=== PATIENT | male | born 1965 | race Two or more races ===

== ENCOUNTER 2016-08-04 05:19 | Day surgery (SDC) | payer OTHER ==
--- NOTE | 2016-08-03 17:15 | Pre-op HX & Phy Repo 2 SIG ---
DATE OF ADMISSION: 08/03/2016 DATE OF SURGERY: 08/04/2016. PREOPERATIVE DIAGNOSES: 1. Inflammatory debris on the intra-ocular lens, right eye. 2. Status post repaired retinal detachment, right eye. BRIEF NOTE: This is the second [facility] admission for the patient, who is a very nice 51-year-old gentleman initially admitted to [facility] in February of 2015 with a prior retinal detachment and inflammation associated with Perfluoron fluid. He underwent a vitrectomy at that time with removal of retained silicone oil and endolaser. He did well with improvement of his vision. He apparently discontinued steroid medications and in time developed severe inflammation and debris formation on both sides of his anterior chamber lens. This is not laserable and he subsequently is admitted for removal of the material from both sides of the lens and injection of Kenalog. PAST MEDICAL HISTORY: Unremarkable. CURRENT MEDICATIONS: Include topical medications for pressure and inflammation including prednisolone, Alphagan, and Vigamox. ALLERGIES: He has no known allergies. SOCIAL HISTORY: He does not smoke or drink. OCULAR EXAMINATION: Best vision at the time of admission was counting fingers at 2 feet in the right eye and 20/30 in the left with pressures of 26 and 17. The anterior segment on the right showed mild corneal haze. There was a peripheral iridotomy and extensive inflammatory debris on the surface of the lens. An anterior chamber lens was in position. The left anterior segment was quiet. Funduscopic examination yielded a hazy view. There was a mild epiretinal membrane and what appeared to be of repaired peripheral retinal detachment on a scleral buckle. The retina was attached. B-scan was done at the time of the visit and revealed a flat retina with only mild vitreous debris. ASSESSMENT: Severe inflammation of the right eye with lens debris. PLAN: The plan is to perform a pars plana vitrectomy with Kenalog injection and removal of inflammatory debris from the anterior and posterior surfaces. The haptics of the lens will be checked and repositioned if necessary. The risks and benefits of surgery were gone over with the patient including potential for infection, hemorrhage, glaucoma, retinal detachment, and the possibility of the loss of the eye. The risk of anesthesia was discussed. The patient understands and consents to the surgery, which will be performed on tomorrow morning. Carlos Mccabe M.D. DR: KADI JOB#: [id number] CC:
[~2016-08-04] VITALS: Ht 170.2 cm; Wt 81.6 kg
[2016-08-04] VITALS (12 sets, daily range): BP systolic 111–127; BP diastolic 70–85
[~2016-08-04 05:19] MED LIST: NKM
[2016-08-04] MEDS ORDERED: Phenylephrine 2.5% Op Soln ONE (05:58)
[2016-08-04] MEDS ORDERED: Flurbiprofen 0.03% Opth Sol 2.5ml ONE (05:58)
[2016-08-04] MEDS ORDERED: Gatifloxacin Opth Solution 0.5% ONE (05:58)
[2016-08-04] MEDS ORDERED: Cyclopentolate 1% Opth Sol ONE (05:58)
[2016-08-04 06:01] LABS: BASOPHILS % (AUTO) 0.9 % (0.0-2.0); EOSINOPHILS % (AUTO) 4.8 % (0.0-3.0); LYMPHOCYTES % (AUTO) 23.2 % (20.0-45.0); MEAN CORPUSCULAR HEMOGLOBIN 30.6 PG (27.0-31.0); MEAN CORPUSCULAR HGB CONC 34.8 G/DL (32.0-36.0); MEAN CORPUSCULAR VOLUME 88 FL (80-99); MEAN PLATELET VOLUME 6.4 FL (6.5-10.1); MONOCYTES % (AUTO) 8.2 % (1.0-10.0); NEUTROPHILS % (AUTO) 62.9 % (45.0-75.0); PLATELET COUNT 177 K/UL (150-450); RED BLOOD COUNT 5.51 M/UL (4.70-6.10); RED CELL DISTRIBUTION WIDTH 11.4 % (11.6-14.8); WHITE BLOOD COUNT 4.8 K/UL (4.8-10.8)
[2016-08-04] MEDS: Cyclopentolate 1% Opth Sol RIGHT EYE SCH ×3 (06:02→06:13)
[2016-08-04] MEDS: Phenylephrine 2.5% Op Soln RIGHT EYE SCH ×3 (06:02→06:13)
[2016-08-04] MEDS: Flurbiprofen 0.03% Opth Sol 2.5ml RIGHT EYE SCH ×3 (06:02→06:13)
[2016-08-04] MEDS: Gatifloxacin Opth Solution 0.5% RIGHT EYE SCH ×3 (06:02→06:13)
--- NOTE | 2016-08-04 06:14 | Pre-Procedure Note/Attestation ---
Pre-Procedure Note/Attestation Complete Prior to Procedure Planned Procedure: right Procedure Narrative: PPV, removal of inflammatory debris (pupillary membrane) from anterior and posterior surface of IOL), Kenalog injection R eye. Indications for Procedure Pre-Operative Diagnosis: Inflammatory debris on IOL, pupillary membrane OD Attestation I attest that I discussed the nature of the procedure; its benefits; risks and complications; and alternatives (and the risks and benefits of such alternatives ), prior to the procedure, with the patient (or the patient's legal environmental marketing representative). I attest that, if there was a reasonable possibility of needing a blood transfusion, the patient (or the patient's legal environmental marketing representative) was given the [place] Department [employer] Services standardized written summary, pursuant to the [place] Blood Safety Act ([place] Health and Safety Code # 1645, as amended). I attest that I re-evaluated the patient just prior to the surgery and that there has been no change in the patient's H&P, except as documented below: FATOUMATA ULLOA Aug 04, 2016 06:14
[2016-08-04 06:20] LABS: ANION GAP 14 (5-15); CALCIUM 9.2 mg/dL (8.6-10.2); CARBON DIOXIDE 25 mEQ/L (20-30); CHLORIDE 100 mEQ/L (98-107); CREATININE 0.9 mg/dL (0.7-1.2); GLOMERULAR FILTRATION RATE > 60 mL/min (>60); HEMOLYSIS 19; POTASSIUM 3.8 mEQ/L (3.4-4.9); SODIUM 139 mEQ/L (135-145)
[2016-08-04] MEDS ORDERED: Pred Forte 1% Opth Susp 1ml RIGHT EYE ONE (06:30)
[2016-08-04] MEDS ORDERED: Maxitrol Opth Oint 3.5gm ONE (06:37)
[2016-08-04] MEDS ORDERED: BSS 500ml btl ONE (06:37)
[2016-08-04] MEDS ORDERED: Dexamethasone 4mg/ml vial ONE (06:38)
[2016-08-04] MEDS ORDERED: Tetracaine 0.5% Opth Soln ONE (06:38)
[2016-08-04] MEDS ORDERED: Povidone-Iodine 5% opth solution ONE (06:40)
[2016-08-04] MEDS ORDERED: EPINEPHrine 1mg/1ml Amp ONE (06:40)
[2016-08-04] MEDS ORDERED: Lidocaine 2% MPF 5ml Vial INJ ONE (06:40)
[2016-08-04] MEDS ORDERED: Bupivacaine 0.75% 30ml vial INJ ONE (06:41)
[2016-08-04] MEDS ORDERED: BSS 15ml BTL ONE (06:41)
[2016-08-04] MEDS ORDERED: Kenalog-40 1ml Vial ONE (06:42)
[2016-08-04] MEDS ORDERED: Sodium Hyaluronate 10 mg/ml 0.85ml ONE (06:42)
[2016-08-04] MEDS ORDERED: Kenalog-10 5ml Inj ONE (06:42)
[2016-08-04] MEDS ORDERED: Indocyanine Green 25mg Inj INJ ONE (07:15)
[2016-08-04] MEDS ORDERED: NS Irrig 1000ml ONE (07:30)
[2016-08-04] MEDS ORDERED: Midazolam 2mg/2ml Inj ONE (07:30)
[2016-08-04] MEDS ORDERED: Labetalol 5mg/ml 20ml vial IV ONE (07:30)
[2016-08-04] MEDS ORDERED: fentaNYL 100 mcg/2 mL IV ONE (07:30)
[2016-08-04] MEDS ORDERED: Propofol 10mg/ml 20ml IV ONE (07:30)
[2016-08-04] MEDS ORDERED: LR 1000ml ONE (07:30)
[2016-08-04] MEDS ORDERED: Sterile Water Irrig 1000ml IRRIG ONE (07:30)
--- NOTE | 2016-08-04 07:30 | Anethesia Preoperative Eval ---
Anesthesia Pre-op PMH/ROS General Date of Evaluation: Aug 04, 2016 Time of Evaluation: 07:27 Anesthesiologist: Ishan ASA Score: ASA 2 Mallampati Score Class I : Soft palate, uvula, fauces, pillars visible Class II: Soft palate, uvula, fauces visible Class III: Soft palate, base of uvula visible Class IV: Only hard plate visible Mallampati Classification: Class II Surgeon: Estelle Diagnosis: R eye retinopathy Surgical Procedure: R eye PPV Anesthesia History: none Family History: no anesthesia problems Allergies: Coded Allergies: No Known Allergies (Unverified , 07/29/15) Medications: see eMAR Past Medical History Cardiovascular: Denies: CAD, HTN, [place], arrhythmia, other, valve dz Pulmonary: Denies: COPD, [place], asthma, other Gastrointestinal/Genitourinary: Reports: GERD, Denies: CRI, ESRD, other Neurologic/Psychiatric: Denies: CVA, TIA, dementia, depression/anxiety, other Endocrine: Denies: DM, hypothyroidism, other, steroids HEENT: Reports: cataract (R), other - R eye retinopathy, Denies: SAV[place]ONGA (L), SAV[place]GA (R), cataract (L), glaucoma Hematology/Immune: Denies: DVT, anemia, bleeding disorder, other Musculoskeletal/Integumentary: Denies: DDD, DJD, OA, RA, edema, other PMH Narrative: as above PSxH Narrative: R eye Sx Anesthesia Pre-op Phys. Exam Physician Exam Last Vital Signs Date Time Temp Pulse Resp B/P Pulse Ox O2 Delivery O2 Flow Rate FiO2 08/04/16 06:06 97.6 56 20 127/70 99 Room Air Constitutional: NAD Neurologic: CN 2-12 intact Cardiovascular: RRR, no M/R/G Respiratory: CTA Gastrointestinal: S/NT/ND Airway Exam Mallampati Score: Class II MO: full Neck: flexible ROM: full Teeth: intact Dentures: no lower, no upper Anesthesia Pre-op A/P Labs Hematology Test 08/04/16 05:50 White Blood Count 4.8 K/UL (4.8-10.8) Red Blood Count 5.51 M/UL (4.70-6.10) Hemoglobin 16.9 G/DL (14.2-18.0) Hematocrit 48.6 % (42.0-52.0) Mean Corpuscular Volume 88 FL (80-99) Mean Corpuscular Hemoglobin 30.6 PG (27.0-31.0) Mean Corpuscular Hemoglobin Concent 34.8 G/DL (32.0-36.0) Red Cell Distribution Width 11.4 % (11.6-14.8) L Platelet Count 177 K/UL (150-450) Mean Platelet Volume 6.4 FL (6.5-10.1) L Neutrophils (%) (Auto) 62.9 % (45.0-75.0) Lymphocytes (%) (Auto) 23.2 % (20.0-45.0) Monocytes (%) (Auto) 8.2 % (1.0-10.0) Eosinophils (%) (Auto) 4.8 % (0.0-3.0) H Basophils (%) (Auto) 0.9 % (0.0-2.0) Chemistry Test 08/04/16 05:50 Sodium Level 139 mEQ/L (135-145) Potassium Level 3.8 mEQ/L (3.4-4.9) Chloride Level 100 mEQ/L (98-107) Carbon Dioxide Level 25 mEQ/L (20-30) Anion Gap 14 (5-15) Blood Urea Nitrogen 18 mg/dL (7-23) Creatinine 0.9 mg/dL (0.7-1.2) Estimat Glomerular Filtration Rate > 60 mL/min (>60) Glucose Level 98 mg/dL (74-106) Calcium Level 9.2 mg/dL (8.6-10.2) Studies Pre-op Studies: EKG - NSR Risk Assessment & Plan Assessment: ASA 2 Plan: GA with LMA patients request Status Change Before Surgery: No Pre-Antibiotics Drug: none YEIMI FIGUEROA M.D. Aug 04, 2016 07:30
[2016-08-04] MEDS ORDERED: Meperidine 25mg/0.5ml Inj IV PRN (08:00)
[2016-08-04] MEDS ORDERED: LR 1000ml 1,000 ML IVLG SCH (08:00)
[2016-08-04] MEDS ORDERED: Ketorolac 30mg Inj IV PRN (08:00)
[2016-08-04] MEDS ORDERED: DiphenhydrAMINE 50mg/ml Inj IVP PRN (08:00)
--- NOTE | 2016-08-04 08:15 | Pre-op HX & Phy Repo 2 SIG ---
DATE OF ADMISSION: 08/04/2016 PRESURGICAL INTERNAL MEDICINE HISTORY AND PHYSICAL SURGEON: Carlos Mccabe M.D. REASON FOR EVALUATION: I was asked to see this 51-year-old male, whom going for elective surgery on the right eye. intraocular lens opacity. The patient was examined. Chart was reviewed. The patient's second visit to [facility]. She was for right eye surgery in 10/10/2015. PAST MEDICAL HISTORY: Denies history of hypertension or diabetes. No history of heart attack, chest pain or palpitation. No lung problem, asthma, or bronchitis. No history of stroke or seizures. No history of thyroid problem. No anemia. No renal failure. Denies history of arthritis or prostate problem. PAST SURGICAL HISTORY: Right eye surgery in September of 2015. MEDICATIONS: Present medications eye drops. ALLERGIES: Not known. HABITS: The patient smoked till last year moderately. Alcohol occasionally. FAMILY HISTORY: Father from cancer of the lung. Smoker. Mother is alive. PHYSICAL EXAMINATION: GENERAL: The patient is alert. VITAL SIGNS: Blood pressure 127/70, temperature 97.6 degrees, pulse 56, respirations 20, and O2 saturation 99% on room air. SKIN: Dry and warm. No cyanosis or diaphoresis. No rashes. LYMPHATICS: Lymph nodes not enlarged. HEENT: Head is normocephalic and atraumatic. Ears, clear. Eyes, full description per Dr. Carlos Mccabe. Mouth, clear and moist. No dentures. No ulcers or discharge. NECK: Supple. No jugular venous distention. Carotids artery +2. Trachea midline. CHEST: No deformity or asymmetry. LUNGS: Clear. No rales or rhonchi. HEART: Sinus rhythm. No ectopy. No murmur. No S3 or S4. ABDOMEN: Soft. No rebound. Liver and spleen not enlarged. EXTREMITIES: No edema. No varicose veins. No calf tenderness. CENTRAL NERVOUS SYSTEM: No asymmetry. No tremor. No nystagmus. LABORATORY AND DIAGNOSTIC DATA: EKG, normal sinus rhythm, 60 per minute. No sinus arrhythmia. The patient did not eat or drink from last night. Laboratory checks in normal limits. No mass. IMPRESSION: 1. Intra-ocular lens opacity. 2. Sinus arrhythmias. 3. Bradycardia PLAN: Pars plana vitrectomy, 23 G removal of opacity lens on the right eye per Dr. Carlos Mccabe. CONCLUSION: The patient's vital signs stable. Laboratory work and the vital signs are normal. The patient did not eat or drink from last night. The patient's condition optimized for surgery. Thank you very much, Dr. Mccabe, for privilege to participate in presurgical care of this interesting patient. Damien Niño M.D. DR: Carol JOB#: [id number] CC:
--- NOTE | 2016-08-04 08:47 | Brief Operative Note ---
Immediate Post Operative Note Operative Note Chief Complaint: Progressively cloudy vision OD Pre-op Diagnosis: Inflammatory debris on IOL, pupillary membrane OD Procedure: PPV, removal of anterior and posterior inflammatory lens membranes, pucker peel , evacuation of residual heavy fluid, enlargement of peripheral iridotomy, paracentesis, Kenalog injection R eye. Post-op Diagnosis: same as pre-op plus - Macular pucker with loculated heavy fluid bubbles R eye Surgeon: malick Anesthesiologist: Ishan Anesthesia: general Specimen: none Complications: none Condition: stable Estimated Blood Loss: none Drains: none Implant(s) used?: No FATOUMATA ULLOA Aug 04, 2016 08:47
--- NOTE | 2016-08-04 09:15 | Immediate Post-Op Evaluation ---
Immediate Post-Op Evalulation Immediate Post-Op Evalulation Procedure: R eye PPV membrane peel Date of Evaluation: Aug 04, 2016 Time of Evaluation: 09:08 IV Fluids: 700 Blood Products: none Estimated Blood Loss: min Urinary Output: none Blood Pressure Systolic: 116 Blood Pressure Diastolic: 81 Pulse Rate: 70 Respiratory Rate: 22 O2 Sat by Pulse Oximetry: 99 Temperature (Fahrenheit): 97.5 Pain Score (1-10): 1 Nausea: No Complications Upper airway irritation on emergence at removal of LMA persistent coughing tachycardic BP up, nose bleeding, extensive suctioning of mouth and nose local packing with phenylephrine solution labetalol and propofol i/v. Bleeding stopped , vitals stable , patient awake breathing spontaneously, moved to PACU. Patient Status: patent, none Hydration Status: adequate YEIMI FIGUEROA M.D. Aug 04, 2016 09:15
--- NOTE | 2016-08-04 11:19 | 48 Hour Post Anesthesia Eval ---
Post Anesthesia Evaluation Procedure: R eye PPV membrane peel Date of Evaluation: Aug 04, 2016 Time of Evaluation: 11:18 Blood Pressure Systolic: 124 0: 82 Pulse Rate: 64 Respiratory Rate: 20 Temperature (Fahrenheit): 97.6 O2 Sat by Pulse Oximetry: 98 Airway: patent Nausea: No Vomiting: No Pain Intensity: 2 Hydration Status: adequate Cardiopulmonary Status: stable Mental Status/LOC: patient returned to baseline Follow-up Care/Observations: n/a Post-Anesthesia Complications: none Follow-up care needed: ready to discharge YEIMI FIGUEROA M.D. Aug 04, 2016 11:19
--- NOTE | 2016-08-04 14:45 | Operative Note - Dictated ---
DATE OF OPERATION: 08/04/2016 PREOPERATIVE DIAGNOSIS: Severe inflammatory membrane formation on intra-ocular lens. POSTOPERATIVE DIAGNOSIS: Severe inflammatory membrane formation on intra-ocular lens with a loculated heavy fluid bubbles behind macular pucker. PROCEDURES PERFORMED: 1. Pars plana vitrectomy. 2. Removal of anterior and posterior inflammatory pupillary membranes. 3. Membrane peel. 4. Evacuation of residual heavy fluid bubbles. 5. Anterior chamber paracentesis. 6. Enlargement of peripheral iridotomy. 7. Kenalog injection, right eye. SURGEON: Carlos Mccabe M.D. INSURANCE BILLING SPECIALIST: None. ANESTHESIA: LMA general. ANESTHESIOLOGIST: Tal Olmstead M.D. JUSTIFICATION FOR SURGERY: This 51-year-old gentleman, who had a complicated retinal detachment repair by another surgeon in 2014. This procedure was complicated by migration of heavy fluid into the anterior chamber, which was subsequently removed during a vitrectomy in early 2015. He has lost follow up for year and upon his return was noted to have severe inflammation and formation of very cloudy inflammatory membranes on both surfaces of the lens implant. BRIEF NOTE: The patient was brought to the operating room, placed on operating room table in supine position. After a time-out was performed and agreed upon by the staff general LMA anesthesia was induced by Dr. Olmstead. Retrobulbar and Van Lint blocks were then given standard way to limit the need for postoperative anesthetic. The patient was then prepped and draped in normal manner. A lid speculum inserted into the right eye. Using a 23-gauge trocar system cannulas were placed all except infratemporal quadrant. Infusion secured verbal inferonasally. Using a [place] [employer], 25-gauge the posterior surface of the lens was gently brushed, clean, very inflammatory debris. A paracentesis was made at the 10 o'clock position and a similar removal was performed on the anterior surface of the lens. Healon was injected into the eye destabilized the anterior chamber and the vitreous cutter was used with gentle suction to remove the adherent debris. Touch up with the [place] [employer] was then used to remove the material from the haptics as well as the inferior angle. This one without difficulty. The peripheral iridotomy at the 9 o'clock position was then enlarged with the vitreous cutter. Using the wide-angle lens the posterior pole was examined. The retina was noted to be all attached, but there were several bubbles of heavy fluid in the posterior pole with a significant amount loculated beneath a dense epiretinal membrane. The free bubbles were then suctioned and cleared from the eye. Using a posterior viewing lens and intra-ocular forceps the macular pucker was gently engaged and peeled allowing access the bubbles that were posterior to the pucker. These were removed with gentle suction. A mild dusting of Kenalog was used to aid in visualization of the pucker. With the majority of the material now removed. The vitreous cavity was copiously flushed with balanced salt solution until no visible bubbles of heavy fluid were seen. At this juncture, the instruments and the superior cannulas were removed from the eye. Through the infusion line and additional Kenalog 3 mm injection was made. This cannula was removed and all wounds noted be self-sealing. Subconjunctival Decadron and gentamicin were then injected inferiorly and Maxitrol ointment as well as prednisolone and gatifloxacin drops were instilled. The eye was patched and shielded and the patient taken to recovery in excellent condition. There are no complications. Carlos Mccabe M.D. DR: Stephanie JOB#: [id number] CC: Carlos Mccabe M.D.; Fax#: [phone]
[2016-08-05] MEDS ORDERED: IBUPROFEN600 MG ORAL (14:13)
== END 2016-08-04 10:50 | disposition home or self-care (01) ==
LOC: SUR 05:19
DX: H43.391 Other vitreous opacities, right eye (principal); H21.41 Pupillary membranes, right eye; H35.371 Puckering of macula, right eye; J95.830 Postprocedural hemorrhage of a respiratory system organ or structure following a respiratory system procedure; R04.0 Epistaxis; I97.191 Other postprocedural cardiac functional disturbances following other surgery; R00.0 Tachycardia, unspecified; Y83.8 Other surgical procedures as the cause of abnormal reaction of the patient, or of later complication, without mention of misadventure at the time of the procedure; Y70.3 Surgical instruments, materials and anesthesiology devices (including sutures) associated with adverse incidents; Y92.238 Other place in hospital as the place of occurrence of the external cause; R00.1 Bradycardia, unspecified; K21.9 Gastro-esophageal reflux disease without esophagitis
CPT/HCPCS: 36415; 67041; 80048; 85025; 93005; J0171; J1100; J2250; J2704; J3010; J3301; J3470; J3490; J7120; 94003; 94150

== ENCOUNTER 2016-08-05 13:56 | Day surgery (SDC) | payer OTHER ==
[~2016-08-05] VITALS: Ht 167.6 cm; Wt 81.6 kg
[2016-08-05] VITALS (7 sets, daily range): BP systolic 120–125; BP diastolic 81–88
[2016-08-05] MEDS ORDERED: IBUPROFEN600 MG ORAL (14:13)
[2016-08-05] MEDS ORDERED: Pred Forte 1% Opth Susp 1ml RIGHT EYE ONE (14:30)
[2016-08-05] MEDS: Cyclopentolate 1% Opth Sol RIGHT EYE SCH ×5 (14:45→16:25)
[2016-08-05] MEDS: Phenylephrine 2.5% Op Soln RIGHT EYE SCH ×6 (14:45→16:25)
[2016-08-05] MEDS: Gatifloxacin Opth Solution 0.5% RIGHT EYE SCH ×6 (14:45→16:25)
[2016-08-05] MEDS: Flurbiprofen 0.03% Opth Sol 2.5ml RIGHT EYE SCH ×6 (14:45→16:25)
[2016-08-05 14:46] LABS: BASOPHILS % (AUTO) 0.7 % (0.0-2.0); EOSINOPHILS % (AUTO) 1.9 % (0.0-3.0); LYMPHOCYTES % (AUTO) 15.2 % (20.0-45.0); MEAN CORPUSCULAR HEMOGLOBIN 31.5 PG (27.0-31.0); MEAN CORPUSCULAR HGB CONC 35.1 G/DL (32.0-36.0); MEAN CORPUSCULAR VOLUME 90 FL (80-99); MEAN PLATELET VOLUME 6.3 FL (6.5-10.1); MONOCYTES % (AUTO) 4.8 % (1.0-10.0); NEUTROPHILS % (AUTO) 77.4 % (45.0-75.0); PLATELET COUNT 179 K/UL (150-450); RED BLOOD COUNT 5.13 M/UL (4.70-6.10); RED CELL DISTRIBUTION WIDTH 11.5 % (11.6-14.8); WHITE BLOOD COUNT 7.7 K/UL (4.8-10.8)
[2016-08-05 15:11] LABS: ALANINE AMINOTRANSFERASE 24 U/L (3-41); ALBUMIN/GLOBULIN RATIO 1.7 (1.0-2.7); ANION GAP 16 (5-15); ASPARTATE AMINO TRANSFERASE 24 U/L (5-40); CALCIUM 9.3 mg/dL (8.6-10.2); CARBON DIOXIDE 28 mEQ/L (20-30); CHLORIDE 96 mEQ/L (98-107); CREATININE 1.1 mg/dL (0.7-1.2); GLOMERULAR FILTRATION RATE > 60 mL/min (>60); HEMOLYSIS 73; POTASSIUM 3.9 mEQ/L (3.4-4.9); SODIUM 140 mEQ/L (135-145); TOTAL PROTEIN 7.1 g/dL (6.6-8.7)
[2016-08-05] MEDS ORDERED: BSS 500ml btl ONE (16:22)
[2016-08-05] MEDS ORDERED: Maxitrol Opth Oint 3.5gm ONE (16:23)
[2016-08-05] MEDS ORDERED: Pred Forte 1% Opth Susp 1ml ONE (16:23)
[2016-08-05] MEDS ORDERED: Kenalog-40 1ml Vial ONE (16:23)
[2016-08-05] MEDS ORDERED: Kenalog-10 5ml Inj ONE (16:24)
[2016-08-05] MEDS ORDERED: Propofol 10mg/ml 20ml IV ONE (16:24)
[2016-08-05] MEDS ORDERED: Dexamethasone 4mg/ml vial ONE ×2 (16:24→17:30)
[2016-08-05] MEDS ORDERED: Tetracaine 0.5% Opth Soln ONE (16:24)
[2016-08-05] MEDS ORDERED: Triamcinolone 40mg/ml PF Vial ONE (16:25)
[2016-08-05] MEDS ORDERED: Povidone-Iodine 5% opth solution ONE (16:25)
[2016-08-05] MEDS ORDERED: Bupivacaine 0.75% 30ml vial INJ ONE (16:25)
[2016-08-05] MEDS ORDERED: EPINEPHrine 1mg/1ml Amp ONE (16:25)
[2016-08-05] MEDS ORDERED: Lidocaine 2% MPF 5ml Vial INJ ONE (16:25)
[2016-08-05] MEDS ORDERED: Sodium Hyaluronate 10 mg/ml 0.85ml ONE (16:25)
[2016-08-05] MEDS ORDERED: BSS 15ml BTL ONE (16:25)
--- NOTE | 2016-08-05 17:13 | Anethesia Preoperative Eval ---
Anesthesia Pre-op PMH/ROS General Date of Evaluation: Aug 05, 2016 Time of Evaluation: 17:10 Anesthesiologist: Kalyan ASA Score: ASA 2 Mallampati Score Class I : Soft palate, uvula, fauces, pillars visible Class II: Soft palate, uvula, fauces visible Class III: Soft palate, base of uvula visible Class IV: Only hard plate visible Mallampati Classification: Class II Surgeon: Estelle Diagnosis: R eye intraocular bleeding Surgical Procedure: R eye PPV Anesthesia History: emergence delirium Family History: no anesthesia problems Allergies: Coded Allergies: No Known Allergies (Unverified , 07/29/15) Medications: see eMAR Past Medical History Cardiovascular: Reports: HTN - mild, Denies: CAD, [place], arrhythmia, other, valve dz Gastrointestinal/Genitourinary: Reports: GERD, Denies: CRI, ESRD, other Neurologic/Psychiatric: Denies: CVA, TIA, dementia, depression/anxiety, other Endocrine: Denies: DM, hypothyroidism, other, steroids HEENT: Reports: cataract (R), other - R eye retinal detouchment Hematology/Immune: Denies: DVT, anemia, bleeding disorder, other Musculoskeletal/Integumentary: Denies: DDD, DJD, OA, RA, edema, other PMH Narrative: as above PSxH Narrative: R eye Sx Anesthesia Pre-op Phys. Exam Physician Exam Last Vital Signs Date Time Temp Pulse Resp B/P Pulse Ox O2 Delivery O2 Flow Rate FiO2 08/05/16 16:09 62 16 122/81 97 Room Air 08/05/16 14:20 98.2 Constitutional: NAD Neurologic: CN 2-12 intact Cardiovascular: RRR Respiratory: CTA Gastrointestinal: S/NT/ND Airway Exam Mallampati Score: Class II MO: full Neck: flexible ROM: full Teeth: missing Dentures: no lower, no upper Anesthesia Pre-op A/P Labs Hematology Test 08/05/16 14:30 White Blood Count 7.7 K/UL (4.8-10.8) # Red Blood Count 5.13 M/UL (4.70-6.10) Hemoglobin 16.2 G/DL (14.2-18.0) Hematocrit 46.1 % (42.0-52.0) Mean Corpuscular Volume 90 FL (80-99) Mean Corpuscular Hemoglobin 31.5 PG (27.0-31.0) H Mean Corpuscular Hemoglobin Concent 35.1 G/DL (32.0-36.0) Red Cell Distribution Width 11.5 % (11.6-14.8) L Platelet Count 179 K/UL (150-450) Mean Platelet Volume 6.3 FL (6.5-10.1) L Neutrophils (%) (Auto) 77.4 % (45.0-75.0) H Lymphocytes (%) (Auto) 15.2 % (20.0-45.0) L Monocytes (%) (Auto) 4.8 % (1.0-10.0) Eosinophils (%) (Auto) 1.9 % (0.0-3.0) Basophils (%) (Auto) 0.7 % (0.0-2.0) Chemistry Test 08/05/16 14:30 Sodium Level 140 mEQ/L (135-145) Potassium Level 3.9 mEQ/L (3.4-4.9) Chloride Level 96 mEQ/L (98-107) L Carbon Dioxide Level 28 mEQ/L (20-30) Anion Gap 16 (5-15) H Blood Urea Nitrogen 15 mg/dL (7-23) Creatinine 1.1 mg/dL (0.7-1.2) Estimat Glomerular Filtration Rate > 60 mL/min (>60) Glucose Level 104 mg/dL (74-106) Calcium Level 9.3 mg/dL (8.6-10.2) Total Bilirubin 0.8 mg/dL (0.0-1.2) Aspartate Amino Transf (AST/SGOT) 24 U/L (5-40) Alanine Aminotransferase (ALT/SGPT) 24 U/L (3-41) Alkaline Phosphatase 71 U/L (40-129) Total Protein 7.1 g/dL (6.6-8.7) Albumin 4.5 g/dL (3.5-5.2) Globulin 2.6 g/dL Albumin/Globulin Ratio 1.7 (1.0-2.7) Studies Pre-op Studies: EKG - NSR Risk Assessment & Plan Assessment: ASA 2 Plan: GA with ETT Status Change Before Surgery: No Pre-Antibiotics Drug: none YEIMI FIGUEROA M.D. Aug 05, 2016 17:13
--- NOTE | 2016-08-05 17:15 | Pre-op HX & Phy Repo 2 SIG ---
DATE OF ADMISSION: 08/05/2016 "NOTE: INCOMPLETE DICTATION" SURGICAL EVALUATION REASON FOR EVALUATION: I was asked by Dr. Carlos Mccabe to see this 51-year-old male, who is going for right eye surgery today. The patient has had the vitrectomy yesterday and developed some bleeding from the right eye. He also complained of sore throat post general anesthesia with intubation yesterday. Please see the full presurgical history and physical dated yesterday and dictated. PAST MEDICAL HISTORY/REVIEW OF SYSTEMS: Unremarkable. No history of hypertension, chest pain, palpitation, or heart attack. No history of stroke or diabetes. Denies history of hypertension. No history of bronchial asthma or respiratory problem. No history of abdominal pain or liver disease. No ulcer. Denies history of renal failure or prostate problem. No history of anemia or thyroid problem. PAST SURGICAL HISTORY: Vitrectomy of the right eye yesterday and in September last year. CURRENT MEDICATIONS: None except for eyedrops. ALLERGIES: Not known. HABITS: The patient smoked for few years and stopped last year. FAMILY HISTORY: Father from lung cancer. Mother alive. PHYSICAL EXAMINATION: VITAL SIGNS: Stable. GENERAL: The patient is alert. SKIN: Clear and warm. HEENT: Complains a throat pain. On examination, throat has slight erythema and edema. Head, normocephalic. Eyes, per Dr. Carlos Mccabe. Nose, clear. No discharge. Ear, no discharge. Trachea midline. NECK: No jugular vein distention. Carotids are 2+. LYMPHATICS: Lymph nodes not enlarged. CHEST: No asymmetry. Damien Niño M.D. DR: DAVE JOB#: [id number] CC:
[2016-08-05] MEDS ORDERED: Midazolam 2mg/2ml Inj ONE (17:30)
[2016-08-05] MEDS ORDERED: Sterile Water Irrig 1000ml IRRIG ONE (17:30)
[2016-08-05] MEDS ORDERED: NS Irrig 1000ml ONE (17:30)
[2016-08-05] MEDS ORDERED: LR 1000ml ONE (17:30)
[2016-08-05] MEDS ORDERED: fentaNYL 100 mcg/2 mL IV ONE (17:30)
--- NOTE | 2016-08-05 17:50 | Emergency Room Report ---
History of Present Illness General Chief Complaint: General Complaint Source: Patient Present Illness HPI 51-year-old male presents to ED for evaluation. Patient referred here by Dr Mccabe (ophthalmology). Patient had retinal surgery of the right eye yesterday. After patient woke up from anesthesia patient noticed a lot of blood in the eye and states he cannot see well. She is here today to have revision of the surgery. States pain is dull, 3/10, nonradiating. Unable to see since the surgery. No other aggravating relieving factors. Denies any other associated symptom Allergies: Coded Allergies: No Known Allergies (Unverified , 07/29/15) Patient History Past Medical History: none Past Surgical History: none Pertinent Family History: none Social History: Denies: alcohol use, drug use, smoking Immunizations: UTD Reviewed Nursing Documentation: PMH: Agreed, PSxH: Agreed Nursing Documentation-PMH Past Medical History: No Stated History Hx Cardiac Problems: No Hx Cancer: No Hx Gastrointestinal Problems: No Hx Neurological Problems: No Review of Systems All Other Systems: negative except mentioned in HPI Physical Exam Vital Signs Date Time Temp Pulse Resp B/P Pulse Ox O2 Delivery O2 Flow Rate FiO2 08/05/16 14:08 98.2 67 16 121/81 97 Room Air Sp02 EP Interpretation: reviewed, normal General Appearance: no apparent distress, alert, GCS 15, non-toxic Head: normocephalic Eyes: right eye other - injected conjunctiva R eye ENT: hearing grossly normal, normal pharynx, no angioedema, normal voice Neck: full range of motion, supple/symm/no masses Respiratory: chest non-tender, lungs clear, normal breath sounds, speaking full sentences Cardiovascular #1: regular rate, rhythm, no edema Gastrointestinal: normal inspection Rectal: deferred Genitourinary: no CVA tenderness Musculoskeletal: normal inspection Neurologic: alert, oriented x3, responsive, motor strength/tone normal, sensory intact, speech normal Psychiatric: normal inspection Skin: normal inspection Lymphatic: normal inspection Medical Decision Making Diagnostic Impression: Primary Impression: Choroid hemorrhage Qualified Codes: H31.301 - Unspecified choroidal hemorrhage, right eye ER Course 51-year-old male presents to ED with pain in injection of the right eye. Status post rectal surgery yesterday Differential- vitreal hemorrhage, conjunctivitis, corneal abrasion Patient placed on stretcher. After initial history and physical I ordered labs , IV fluids Labs unremarkable Spoke to Dr. Mccabe; asked that I order multiple eyedrops to prepare the patient for surgery today Drops were given to the patient without complication. Patient will be taken to the OR Diagnoses-choiroid hemorrhage patien taken to OR Labs Test 08/05/16 14:30 White Blood Count 7.7 K/UL (4.8-10.8) Red Blood Count 5.13 M/UL (4.70-6.10) Hemoglobin 16.2 G/DL (14.2-18.0) Hematocrit 46.1 % (42.0-52.0) Mean Corpuscular Volume 90 FL (80-99) Mean Corpuscular Hemoglobin 31.5 PG (27.0-31.0) Mean Corpuscular Hemoglobin Concent 35.1 G/DL (32.0-36.0) Red Cell Distribution Width 11.5 % (11.6-14.8) Platelet Count 179 K/UL (150-450) Mean Platelet Volume 6.3 FL (6.5-10.1) Neutrophils (%) (Auto) 77.4 % (45.0-75.0) Lymphocytes (%) (Auto) 15.2 % (20.0-45.0) Monocytes (%) (Auto) 4.8 % (1.0-10.0) Eosinophils (%) (Auto) 1.9 % (0.0-3.0) Basophils (%) (Auto) 0.7 % (0.0-2.0) Sodium Level 140 mEQ/L (135-145) Potassium Level 3.9 mEQ/L (3.4-4.9) Chloride Level 96 mEQ/L (98-107) Carbon Dioxide Level 28 mEQ/L (20-30) Anion Gap 16 (5-15) Blood Urea Nitrogen 15 mg/dL (7-23) Creatinine 1.1 mg/dL (0.7-1.2) Estimat Glomerular Filtration Rate > 60 mL/min (>60) Glucose Level 104 mg/dL (74-106) Calcium Level 9.3 mg/dL (8.6-10.2) Total Bilirubin 0.8 mg/dL (0.0-1.2) Aspartate Amino Transf (AST/SGOT) 24 U/L (5-40) Alanine Aminotransferase (ALT/SGPT) 24 U/L (3-41) Alkaline Phosphatase 71 U/L (40-129) Total Protein 7.1 g/dL (6.6-8.7) Albumin 4.5 g/dL (3.5-5.2) Globulin 2.6 g/dL Albumin/Globulin Ratio 1.7 (1.0-2.7) Last Vital Signs Date Time Temp Pulse Resp B/P Pulse Ox O2 Delivery O2 Flow Rate FiO2 08/05/16 16:09 62 16 122/81 97 Room Air 08/05/16 14:20 98.2 Status: improved Disposition: ADMITTED INPATIENT Condition: Serious Referrals: NOT CHOSEN ELIJAH/,REFERRING (PCP) SHERRY BARRERA M.D. Aug 05, 2016 17:50
[2016-08-05] MEDS ORDERED: LR 1000ml 1,000 ML IVLG SCH (18:02)
[2016-08-05] MEDS ORDERED: fentaNYL 100 mcg/2 mL IV PRN (18:15)
--- NOTE | 2016-08-05 18:58 | Pre-Procedure Note/Attestation ---
Pre-Procedure Note/Attestation Complete Prior to Procedure Planned Procedure: right Procedure Narrative: Drainage of choroidal hemorrhage R eye Indications for Procedure Pre-Operative Diagnosis: Large suprachoroidal heme R eye Attestation I attest that I discussed the nature of the procedure; its benefits; risks and complications; and alternatives (and the risks and benefits of such alternatives ), prior to the procedure, with the patient (or the patient's legal financial services sales representative). I attest that, if there was a reasonable possibility of needing a blood transfusion, the patient (or the patient's legal financial services sales representative) was given the [facility] standardized written summary, pursuant to the Filipe Servando Blood Safety Act ([place] Health and Safety Code # 1645, as amended). I attest that I re-evaluated the patient just prior to the surgery and that there has been no change in the patient's H&P, except as documented below: FATOUMATA ULLOA Aug 05, 2016 18:58
--- NOTE | 2016-08-05 18:59 | Brief Operative Note ---
Immediate Post Operative Note Operative Note Chief Complaint: Loss of vision R eye Pre-op Diagnosis: Large suprachoroidal heme R eye Procedure: Drainage of choroidal heme with simultaneous infusion R eye Post-op Diagnosis: same as pre-op Surgeon: malick Anesthesiologist: kayleigh Anesthesia: MAC Specimen: none Condition: stable Estimated Blood Loss: none Drains: none Implant(s) used?: No FATOUMATA ULLOA Aug 05, 2016 18:59
[2016-08-05] MEDS ORDERED: Norco 5mg/325mg tab ORAL PRN (19:00)
--- NOTE | 2016-08-05 19:02 | Immediate Post-Op Evaluation ---
Immediate Post-Op Evalulation Immediate Post-Op Evalulation Procedure: Evacuation of intraocular hematoma Date of Evaluation: Aug 05, 2016 Time of Evaluation: 19:00 IV Fluids: 300 Blood Products: none Estimated Blood Loss: min Urinary Output: none Blood Pressure Systolic: 125 Blood Pressure Diastolic: 83 Pulse Rate: 65 Respiratory Rate: 20 O2 Sat by Pulse Oximetry: 98 Temperature (Fahrenheit): 97.6 Pain Score (1-10): 2 Nausea: No Vomiting: No Complications none. Procedure janet under MAC with retrobulbar block, patient tolerated it well wide awake in PACU Patient Status: awake, patent, none Hydration Status: adequate YEIMI FIGUEROA M.D. Aug 05, 2016 19:02
--- NOTE | 2016-08-05 19:30 | Pre-op HX & Phy Repo 2 SIG ---
DATE OF ADMISSION: 08/05/2016 DATE OF SURGERY: 08/05/2016 PREOPERATIVE DIAGNOSIS: Choroidal hemorrhaging, right eye. BRIEF NOTE: This is the second [facility] admission for the patient in the past 36 hours. The patient is a 51-year-old gentleman who previously had problems with retinal detachment in the right eye. This was repaired last year and subsequently corrected by myself eight months ago with removal of heavy fluid which was causing problems with the eye. He did well until there was clouding of the lens implant which required another operation to remove the debris from the anterior and posterior surfaces of the implant as a membrane peel to remove loculated heavy fluid. The operation was extremely successful with clearing of the lens on both sides and removal of all residual traces of heavy fluid. Apparently after the case was done there was difficulty with extubation and recovery from anesthetic with the problem associated with elevated blood pressure which subsequently led to nose bleed and significant bleeding when the tube was pulled. I was not there to witness this series of events but was told by the anesthesiologist that he had a "rough landing" . One initial postoperative examination early this morning, the patient was noted to have an anterior segment hyphema and marked decreased vision in the eye. Ultrasound examination revealed the presence of a barely sizeable choroidal hemorrhage which obscured the interior of the eye. Because of this, he is admitted for immediate drainage of the choroidal hemorrhage and reformation of the integrity of the globe. PAST MEDICAL HISTORY: Delineated previously. He has no known medical problems and no known allergies. He has been on topical medications only. PHYSICAL EXAMINATION: Best vision at the time of admission was bare light perception in the right eye and 20/30 in the left. The pressure on the right was 15 and on the left 17. The anterior segment on the right showed a clear cornea. There was a significant hyphema with some blood being layered inferiorly and blood also present in the mid vitreous cavity. The implant appeared to be in place. There was a poor red reflex. An ultrasound done on eye revealed significant effusions which appeared to be hemorrhagic. These were essentially kissing. The left anterior and posterior segments were benign. ASSESSMENT: Massive postoperative choroidal effusions right eye. PLAN: The plan is to perform drainage of choroidal effusions and hyphema with reformation of the chamber. A gas injection will possibly be done. The risks and benefits of surgery were gone over the patient including the inability to drain the choroidals completely, the possible need for another operation, and the possibility that vision not be recovered. He understands and consents to surgery which will be performed this afternoon. Carlos Mccabe M.D. DR: Quentin JOB#: [id number] CC:
--- NOTE | 2016-08-05 22:15 | Operative Note - Dictated ---
DATE OF OPERATION: 08/05/2016 PREOPERATIVE DIAGNOSIS: Large choroidal hemorrhages, right eye. POSTOPERATIVE DIAGNOSIS: Large choroidal hemorrhages, right eye with anterior chamber hyphema. PROCEDURE PERFORMED: Drainage of choroidal hemorrhages with simultaneous infusion of balanced salt solution, right eye. SURGEON: Carlos Mccabe M.D. RESPIRATORY MEDICINE PHYSICIAN SURGEON: None. ANESTHESIOLOGIST: Tal Olmstead M.D. ANESTHESIA: Local with sedation. JUSTIFICATION FOR SURGERY: This 51-year-old gentleman underwent a very successful vitrectomy with membrane peeling and removal of pupillary membrane on yesterday morning. As anesthesia was being completed, the patient went through period of bucking and coughing and noted a significant nose bleed as well as bleeding from the mouth. When evaluated this morning, he was found to have loss of vision and a fairly massive choroidal hemorrhage in the right eye. He was admitted for drainage. BRIEF NOTE: The patient was brought to the operative room and placed on the operating room table in supine position. After a time-out was performed, and agreed upon by the staff, and initial monitoring secured by Dr. Olmstead, retrobulbar and Van Lint Blocks were given in standard way. During the blocks taken effect, he was prepped and draped in the normal manner. The lid speculum inserted to the right eye. The previous paracentesis was closed with a 10-0 Nylon suture. The eye was noted to be normotensive. A cutdown through conjunctiva and tenons was made at the site of the prior sclerotomy superotemporally. The sclerotomy was closed with using a #20-gauge MVR blade and it was opened. Simultaneously infusion was made through the limbus through cornea using a 27-gauge needle at moderate pressure. A large amount of dark blood was noted to drain from the sclerotomy site. Roughly 2.5 mL or more was felt to drain. Wound drainage had ceased at this site. A similar cutdown was made superonasally and inferotemporally, but only limited fluid could be drained. With the anterior chamber now clear, the choroidal was seen to have regressed posteriorly. There appeared to be some hemorrhage in the vitreous cavity, which had flowed posteriorly. It was felt at this point that the remainder of the superolateral blood was clotted and that no additional drainage would be successful. All sclerotomies were closed as was overlying conjunctiva and tenons with 8-0 Vicryl suture, knots buried . The Nylon suture also was buried. With the eye being left normotensive, subconjunctival Decadron and gentamicin were injected inferiorly and prednisolone, atropine, and gatifloxacin drops were instilled as well as Maxitrol ointment. The eye was patched and shielded. The patient was taken to recovery room in excellent condition. There were no complications. It should be noted that in case where drainage is done the soon, the purpose just remove as much blood as possible to relieve kissing choroidal effusions. As the blood liquifies, additional drainage might be spontaneous or an additional surgery may be needed. Carlos Mccabe M.D. DR: Neelam JOB#: [id number] CC:
[2016-08-06 09:56] VITALS: BP 124/62
--- NOTE | 2016-08-06 09:56 | 48 Hour Post Anesthesia Eval ---
Post Anesthesia Evaluation Procedure: Evacuation of intraocular hematoma Date of Evaluation: Aug 05, 2016 Time of Evaluation: 20:10 Blood Pressure Systolic: 124 0: 62 Pulse Rate: 58 Respiratory Rate: 20 Temperature (Fahrenheit): 97.6 O2 Sat by Pulse Oximetry: 98 Airway: patent Nausea: No Vomiting: No Pain Intensity: 1 Hydration Status: adequate Cardiopulmonary Status: stable Mental Status/LOC: patient returned to baseline Follow-up Care/Observations: n/a Post-Anesthesia Complications: none Follow-up care needed: ready to discharge YEIMI FIGUEROA M.D. Aug 06, 2016 09:56
== END 2016-08-05 19:40 | disposition home or self-care (01) ==
LOC: EMR 16:10 → SUR 17:12
DX: H31.301 Unspecified choroidal hemorrhage, right eye (principal); H21.01 Hyphema, right eye; I10 Essential (primary) hypertension; K21.9 Gastro-esophageal reflux disease without esophagitis; Z87.891 Personal history of nicotine dependence
CPT/HCPCS: 36415; 67015; 80053; 85025; 99285; J0171; J1100; J2250; J2704; J3010; J3470; J3490; J7120; 94003; 94150; J3300

== ENCOUNTER 2016-09-27 05:45 | Day surgery (SDC) | payer OTHER ==
--- NOTE | 2016-09-25 19:45 | Pre-op HX & Phy Repo 2 SIG ---
DATE OF ADMISSION: 09/27/2016 DATE OF SURGERY: 09/27/2016. PREOPERATIVE DIAGNOSIS: Retinal detachment, right eye. 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 His past ocular history is remarkable for a retinal detachment performed roughly a year ago by another physician. This was successfully repaired by myself previously in February 2015. The patient did well, but developed inflammatory debris on the surface of the lens, which caused diminished vision on that side. He also had a macular pucker. He was admitted for vitrectomy in June of this year and the surgery was quite successful with cleaning of the lens of all debris and removal of the macular pucker. In the immediate postoperative period, he developed problems related to bleeding and discomfort from the anesthetic too and subsequently had a bout of severe coughing and retching. On examination subsequently, he was found to have had a dense subchoroidal hemorrhage. He was immediately brought back to the operating room where drainage of roughly 30% of the blood was achieved prior to clotting of the rest. Over time, this blood subsequently cleared and after clearing, he was found to have a recurrent detachment possibly related to peripheral break. He is admitted for exploration and repair. PAST MEDICAL HISTORY: Normal according to the patient. MEDICATIONS: His only medications include medications for ocular conditions. ALLERGIES: He has no known allergies. PHYSICAL EXAMINATION: Best vision at the time of the visit was counting fingers at 4 feet in the right eye and 20/80- in the left with pressures of 14 and 13. The anterior segment on the right was quiet with the lens in position and no apparent hyphema or significant inflammation. The left anterior segment was quiet with mild cataract. Fundus exam of the right eye showed mild pallor of the nerve. The retina was totally detached. No definite break was noted. The left fundus was benign. Ultrasonography revealed the presence of the detachment without evidence of choroidal effusions. ASSESSMENT: Retinal detachment, right eye. PLAN: The plan is to perform a pars plana vitrectomy with exploration to determine the source of the tear, endo drainage, endolaser, and either placement of intraocular gas or silicone oil. The risks and benefits of surgery gone over the patient with potential infection, hemorrhage, glaucoma, inability to repair the retinal and the possibility of loss of the eye. The risk of anesthesia was discussed. The patient understands and consents to the surgery, which will be performed on Tuesday morning. Carlos Mccabe M.D. DR: Pascual JOB#: [id number] CC:
[2016-09-27] VITALS (8 sets, daily range): BP systolic 101–124; BP diastolic 56–84
[~2016-09-27] VITALS: Ht 165.1 cm; Wt 81.6 kg
[~2016-09-27 05:45] MED LIST changes: +Cyclopentolate 1% Opth Sol ONE; +Flurbiprofen 0.03% Opth Sol 2.5ml ONE; +IBUPROFEN600 MG ORAL; +Phenylephrine 2.5% Op Soln ONE; +Vigamox Opth Soln ONE
[2016-09-27] MEDS: Phenylephrine 2.5% Op Soln RIGHT EYE SCH ×3 (06:13→06:46)
[2016-09-27] MEDS: Cyclopentolate 1% Opth Sol RIGHT EYE SCH ×3 (06:13→06:46)
[2016-09-27] MEDS: Flurbiprofen 0.03% Opth Sol 2.5ml RIGHT EYE SCH ×3 (06:13→06:46)
[2016-09-27] MEDS: Vigamox Opth Soln RIGHT EYE SCH ×3 (06:13→06:46)
[2016-09-27] MEDS ORDERED: NKM (06:20)
--- NOTE | 2016-09-27 06:22 | Pre-Procedure Note/Attestation ---
Pre-Procedure Note/Attestation Complete Prior to Procedure Planned Procedure: right Procedure Narrative: PPV, endodrainage, endolaser, gas-fluid exchange or silicone oil injection R eye Indications for Procedure Pre-Operative Diagnosis: Retinal detachment R eye Attestation I attest that I discussed the nature of the procedure; its benefits; risks and complications; and alternatives (and the risks and benefits of such alternatives ), prior to the procedure, with the patient (or the patient's legal cash applications representative). I attest that, if there was a reasonable possibility of needing a blood transfusion, the patient (or the patient's legal cash applications representative) was given the [facility] standardized written summary, pursuant to the Filipe Servando Blood Safety Act ([place] Health and Safety Code # 1645, as amended). I attest that I re-evaluated the patient just prior to the surgery and that there has been no change in the patient's H&P, except as documented below: FATOUMATA ULLOA Sep 27, 2016 06:22
[2016-09-27] MEDS ORDERED: Pred Forte 1% Opth Susp 1ml RIGHT EYE ONE (07:00)
[2016-09-27] MEDS ORDERED: BSS 500ml btl ONE (07:04)
[2016-09-27] MEDS ORDERED: Kenalog-40 1ml Vial ONE (07:04)
[2016-09-27] MEDS ORDERED: Dexamethasone 4mg/ml vial ONE (07:05)
[2016-09-27] MEDS ORDERED: Tetracaine 0.5% Opth Soln ONE (07:05)
[2016-09-27] MEDS ORDERED: Maxitrol Opth Oint 3.5gm ONE (07:05)
[2016-09-27] MEDS ORDERED: Kenalog-10 5ml Inj ONE (07:05)
[2016-09-27] MEDS ORDERED: EPINEPHrine 1mg/1ml Amp ONE (07:06)
[2016-09-27] MEDS ORDERED: BSS 15ml BTL ONE (07:06)
[2016-09-27] MEDS ORDERED: Lidocaine 2% MPF 5ml Vial INJ ONE (07:06)
[2016-09-27] MEDS ORDERED: Sodium Hyaluronate 10 mg/ml 0.85ml ONE (07:06)
[2016-09-27] MEDS ORDERED: Povidone-Iodine 5% opth solution ONE (07:06)
[2016-09-27] MEDS ORDERED: Bupivacaine 0.75% 30ml vial INJ ONE (07:06)
[2016-09-27] MEDS ORDERED: Midazolam 2mg/2ml Inj ONE (07:30)
[2016-09-27] MEDS ORDERED: Sterile Water Irrig 1000ml IRRIG ONE (07:30)
[2016-09-27] MEDS ORDERED: LR 1000ml ONE (07:30)
[2016-09-27] MEDS ORDERED: NS Irrig 1000ml ONE (07:30)
[2016-09-27] MEDS ORDERED: Propofol 10mg/ml 20ml IV ONE (07:30)
[2016-09-27 07:35] LABS: BASOPHILS % (AUTO) 0.7 % (0.0-2.0); EOSINOPHILS % (AUTO) 2.3 % (0.0-3.0); LYMPHOCYTES % (AUTO) 8.9 % (20.0-45.0); MEAN CORPUSCULAR HEMOGLOBIN 32.9 PG (27.0-31.0); MEAN CORPUSCULAR HGB CONC 35.3 G/DL (32.0-36.0); MEAN CORPUSCULAR VOLUME 93 FL (80-99); MEAN PLATELET VOLUME 6.7 FL (6.5-10.1); MONOCYTES % (AUTO) 5.1 % (1.0-10.0); NEUTROPHILS % (AUTO) 82.9 % (45.0-75.0); PLATELET COUNT 180 K/UL (150-450); RED BLOOD COUNT 4.88 M/UL (4.70-6.10); RED CELL DISTRIBUTION WIDTH 11.7 % (11.6-14.8); WHITE BLOOD COUNT 4.8 K/UL (4.8-10.8)
[2016-09-27] MEDS ORDERED: LR 1000ml 1,000 ML IVLG SCH (07:57)
[2016-09-27] MEDS ORDERED: LR 1000ml 1,000 ML IV SCH (08:00)
[2016-09-27] MEDS ORDERED: fentaNYL 100 mcg/2 mL IV PRN (08:00)
--- NOTE | 2016-09-27 08:02 | Anethesia Preoperative Eval ---
Anesthesia Pre-op PMH/ROS General Date of Evaluation: Sep 27, 2016 Time of Evaluation: 07:20 Anesthesiologist: Jozef ASA Score: ASA 1 Mallampati Score Class I : Soft palate, uvula, fauces, pillars visible Class II: Soft palate, uvula, fauces visible Class III: Soft palate, base of uvula visible Class IV: Only hard plate visible Mallampati Classification: Class II Surgeon: Estelle Diagnosis: Total retina Surgical Procedure: Vitrectomy, endolaser right eye Family History: no anesthesia problems Allergies: Coded Allergies: No Known Allergies (Unverified , 07/29/15) Medications: see eMAR Past Medical History Cardiovascular: Denies: CAD, HTN, [place], arrhythmia, other, valve dz Pulmonary: Denies: COPD, TRACEE, asthma, other Gastrointestinal/Genitourinary: Denies: CRI, ESRD, GERD, other Neurologic/Psychiatric: Denies: CVA, TIA, dementia, depression/anxiety, other Endocrine: Denies: DM, hypothyroidism, other, steroids HEENT: Denies: COUNCIL (L), COUNCIL (R), cataract (L), cataract (R), glaucoma, other Hematology/Immune: Denies: DVT, anemia, bleeding disorder, other Musculoskeletal/Integumentary: Denies: DDD, DJD, OA, RA, edema, other PMH Narrative: Denies PSxH Narrative: Right eye vitrectomy Anesthesia Pre-op Phys. Exam Physician Exam Last Vital Signs Date Time Temp Pulse Resp B/P Pulse Ox O2 Delivery O2 Flow Rate FiO2 09/27/16 07:06 97.9 72 20 124/80 98 Room Air Constitutional: NAD Neurologic: CN 2-12 intact Cardiovascular: RRR, no M/R/G Respiratory: CTA Gastrointestinal: S/NT/ND Airway Exam Mallampati Score: Class II MO: full ROM: full Teeth: intact Anesthesia Pre-op A/P Labs Hematology Test 09/27/16 06:55 White Blood Count 4.8 K/UL (4.8-10.8) Red Blood Count 4.88 M/UL (4.70-6.10) Hemoglobin 16.1 G/DL (14.2-18.0) Hematocrit 45.5 % (42.0-52.0) Mean Corpuscular Volume 93 FL (80-99) Mean Corpuscular Hemoglobin 32.9 PG (27.0-31.0) H Mean Corpuscular Hemoglobin Concent 35.3 G/DL (32.0-36.0) Red Cell Distribution Width 11.7 % (11.6-14.8) Platelet Count 180 K/UL (150-450) Mean Platelet Volume 6.7 FL (6.5-10.1) Neutrophils (%) (Auto) 82.9 % (45.0-75.0) H Lymphocytes (%) (Auto) 8.9 % (20.0-45.0) L Monocytes (%) (Auto) 5.1 % (1.0-10.0) Eosinophils (%) (Auto) 2.3 % (0.0-3.0) Basophils (%) (Auto) 0.7 % (0.0-2.0) Chemistry Test 09/27/16 06:55 Sodium Level Pending Potassium Level Pending Chloride Level Pending Carbon Dioxide Level Pending Blood Urea Nitrogen Pending Creatinine Pending Estimat Glomerular Filtration Rate Pending Glucose Level Pending Calcium Level Pending Studies Pre-op Studies: EKG - NSR Risk Assessment & Plan Assessment: Healthy male Plan: MAC, TIVA Status Change Before Surgery: No Pre-Antibiotics Drug: None LEX GUILLEN M.D. Sep 27, 2016 08:02
--- NOTE | 2016-09-27 08:03 | Immediate Post-Op Evaluation ---
Immediate Post-Op Evalulation Immediate Post-Op Evalulation Procedure: Vitrectomy, endolser right eye Date of Evaluation: Sep 27, 2016 Time of Evaluation: 08:50 IV Fluids: 450 Blood Pressure Systolic: 112 Blood Pressure Diastolic: 84 Pulse Rate: 72 Respiratory Rate: 20 O2 Sat by Pulse Oximetry: 99 Temperature (Fahrenheit): 98.6 Pain Score (1-10): 0 Nausea: No Vomiting: No Complications No complication Patient Status: awake, patent, none Hydration Status: adequate Drug: None LEX GUILLEN M.D. Sep 27, 2016 08:02
--- NOTE | 2016-09-27 08:45 | 48 Hour Post Anesthesia Eval ---
Post Anesthesia Evaluation Procedure: Vitrectomy, endolser right eye Date of Evaluation: Sep 27, 2016 Time of Evaluation: 09:20 Blood Pressure Systolic: 118 0: 80 Pulse Rate: 71 Respiratory Rate: 18 O2 Sat by Pulse Oximetry: 99 Airway: patent Nausea: No Vomiting: No Pain Intensity: 0 Hydration Status: adequate Cardiopulmonary Status: Stable Mental Status/LOC: patient returned to baseline Follow-up Care/Observations: As per surgery Post-Anesthesia Complications: No anesthetic complication Follow-up care needed: N/A LEX GUILLEN M.D. Sep 27, 2016 08:45
--- NOTE | 2016-09-27 08:49 | Brief Operative Note ---
Immediate Post Operative Note Operative Note Chief Complaint: Blurred and distorted vision R eye Pre-op Diagnosis: Retinal detachment R eye Procedure: PPV, endodrainage, endolaser 1795 spots, peripheral inferior iridotomy, Silicone oil injection (1000 centistokes) R eye Post-op Diagnosis: same as pre-op Surgeon: malick Marketing Research Intern: nancy Anesthesiologist: Stephen Anesthesia: MAC Specimen: none Complications: none Condition: stable Estimated Blood Loss: none Drains: none Implant(s) used?: No FATOUMATA ULLOA Sep 27, 2016 08:49
[2016-09-27 09:36] LABS: ANION GAP 11 (5-15); CALCIUM 8.9 mg/dL (8.6-10.2); CARBON DIOXIDE 25 mEQ/L (20-30); CHLORIDE 106 mEQ/L (98-107); CREATININE 0.9 mg/dL (0.7-1.2); GLOMERULAR FILTRATION RATE > 60 mL/min (>60); HEMOLYSIS 11; POTASSIUM 3.8 mEQ/L (3.4-4.9); SODIUM 142 mEQ/L (135-145)
--- NOTE | 2016-09-27 10:45 | Pre-op HX & Phy Repo 2 SIG ---
DATE OF ADMISSION: 09/27/2016 REASON FOR EVALUATION: I was asked by Dr. Carlos Mccabe to see this 51-year-old male, who is going for elective surgery on the right eye. The patient has a total retinal detachment, right eye. The patient was evaluated and chart was reviewed. PAST MEDICAL HISTORY: Denies history of hypertension or diabetes. No history of chest pain, palpitation, or heart attack. Denies history of respiratory problem. No history of anemia or thyroid problem. Denies history of renal failure or prostate problem. No history of stroke or seizures. No headache. PAST SURGICAL HISTORY: Right eye surgery a year ago. MEDICATIONS: None. ALLERGIES: Not known. FAMILY HISTORY: Noncontributory. HABITS: Smoked in the distant past. Occasional alcohol. No street drugs. PHYSICAL EXAMINATION: GENERAL: Alert, well-developed, well-nourished male in his 40s, in no acute distress. The patient is alert, no distress. VITAL SIGNS: Blood pressure 124/80, temperature 97.9 degrees, heart rate is 68 and regular, and O2 saturation 96% on room air. SKIN: Clear. No rashes. No open wounds. Dry and warm. LYMPHATICS: Lymph nodes not enlarged. HEENT: Head, normocephalic and atraumatic. Ears, clear. Eyes, full description per Dr. Carlos Mccabe. Mouth, clear and moist. No ulcer or discharge. No dentures. No palpable mass. Thyroid gland not enlarged. NECK: No jugular vein distention. Carotids are + 2. Supple. CHEST: No deformity or asymmetry. LUNGS: Clear to auscultation and percussion. HEART: Sinus rhythm. No ectopy. No murmur. No S3 or S4. ABDOMEN: Soft. No palpable mass. No rebound. EXTREMITIES: No peripheral edema. No calf tenderness. No asymmetry. GENITOURINARY: Denied dysuria. No CVA tenderness. NEUROLOGIC: No asymmetry. No tremor or nystagmus. LABORATORY AND DIAGNOSTIC DATA: Electrocardiogram, normal sinus rhythm at 65 per minute, normal ECG. The patient's last p.o. intake 10 p.m. last night. Lab work obtained and pending. IMPRESSION: Total retinal detachment, right eye. PLAN: Pars plana vitrectomy, 23 G endolaser gas, right eye per Dr. Carlos Mccabe. CONCLUSION: The patient's vital signs stable. EKG is normal. The patient last night. The patient's condition is optimized for surgery. Thank you very much, Dr. Mccabe, for the privilege to participate in presurgical care of this interesting patient. Damien Niño M.D. DR: DEMETRA JOB#: [id number] CC:
--- NOTE | 2016-09-27 13:00 | Operative Note - Dictated ---
DATE OF OPERATION: 09/27/2016 PREOPERATIVE DIAGNOSIS: Total retinal detachment, right eye. POSTOPERATIVE DIAGNOSIS: Total retinal detachment, right eye. PROCEDURES: 1. Pars plana vitrectomy. 2. Endo drainage. 3. Formation of inferior peripheral iridotomy. 4. Endolaser, 1795 spots . 5. Silicone oil injection 1000 centistokes, right eye. SURGEON: Carlos Mccabe M.D. JANITORIAL ASSISTANT: None. ANESTHESIA: Local sedation. ANESTHESIOLOGIST: Filipe Haskins M.D. 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 He underwent endo drainage the next day and over the next several weeks, gradually had spontaneous drainage of the choroidal effusions. He was however found to have a fairly bullous total retinal detachment. He was admitted for exploration and repair. Brief Note: The patient was brought to the operating room, placed on the OR table in supine position. After a time-out was performed and agreed upon by the staff, initial monitoring secured by Dr. Mitchell. Retrobulbar and Van Lint blocks given the standard way. When the blocks taken effect, he was prepped and draped in normal manner. A lid speculum inserted to the right eye. Using a 23-gauge trocar system, cannulas were placed all except infranasal quadrant. Infusion secured inferotemporally. The eye was carefully examined with a BIOM wide-angle viewing system. Scleral depression showed there to be a total retinal detachment and what appeared to be a small slit like tear anterior to the equator at the 6:30 position. This area was gently marked with diathermy. Although scattered folds of the retina were seen, no other definite breaks were noted. It was elected to do endo drainage and using the Endo diathermy, a small spot was selected just superior and nasal to the optic nerve. Using the cannulated extrusion, needle subretinal fluid some of which was straw colored and the remnant of old blood was drained from beneath the retina with the retina flattening nicely. An air-fluid exchange was done in the process. The endolaser was then brought into the eye and at power of 0.3 harrington and duration 0.2 seconds, 1795 lesions were placed essentially forming a new pars plana with surrounding laser about the suspected tear and the endo drainage site. Because of the inferior nature of the break and the fact that it was posterior to the buckle, I was elected to place silicone oil for a long-term tamponade. 1000 centistokes silicone oil was selected and the eye was filled to roughly 95% to just at the pupillary plane without intrusion into the anterior chamber. The pressure was normalized and each cannula removed with the sclerotomy was closed carefully with 7-0 Vicryl suture. A small suture of nylon that had been placed in a prior operation, was removed from the limbus at 10 o'clock. With the eye now normotensive, subconjunctival Decadron and gentamicin were injected and Maxitrol and atropine ointments were instilled. The eye was patched and shielded. The patient taken to recovery in excellent condition. There were no complications. Carlos Mccabe M.D. DR: AZALIA JOB#: [id number] CC: Carlos Mccabe M.D.; Fax#: [phone]
[2016-09-27] MEDS ORDERED: Norco 5mg/325mg tab ORAL PRN (14:00)
== END 2016-09-27 10:00 | disposition home or self-care (01) ==
LOC: SUR 05:45
DX: H33.011 Retinal detachment with single break, right eye (principal)
CPT/HCPCS: 36415; 67108; 80048; 85025; J0171; J1100; J2250; J2704; J3470; J3490; J7120; 94003; 94150